=== PATIENT | female | born 1990 | race Caucasian/White ===

== ENCOUNTER 2019-08-04 08:50 | Inpatient (IN) | payer MEDICAID ==
[~2019-08-04] VITALS: Ht 157.5 cm; Wt 97.5 kg
[2019-08-04] MEDS ORDERED: LIDOCAINE HCL 2%/EPINEPHRINE 1:100,000 20 ML VIAL INFIL ONE (09:44)
[2019-08-04 10:30] LABS: CLARITY URINE CLEAR (CLEAR); COLOR URINE YELLOW (YELLOW); KETONES URINE NEGATIVE (NEGATIVE); LEUKOCYTE ESTERASE URINE 2+ (NEGATIVE); NITRITE URINE NEGATIVE (NEGATIVE); OCCULT BLOOD URINE NEGATIVE (NEGATIVE); PH URINE 6.5 (4.5-8.0); PROTEIN URINE NEGATIVE (NEGATIVE); SPECIFIC GRAVITY URINE 1.016 (1.005-1.030); UROBILINOGEN URINE 0.2 E.U./dL (0.2-1.0)
[2019-08-04 10:33] LABS: BASOPHILS % 0.6 % (0.0-2.0); EOSINOPHILS % 0.2 % (0.0-5.0); LYMPHOCYTES % 23.7 % (20.0-50.0); MEAN CORPUSCULAR VOLUME 84.8 fL (81.0-99.0); MEAN PLATELET VOLUME 9.2 fl (7.4-10.4); MONOCYTES % 6.2 % (2.0-8.0); NEUTROPHILS % 69.3 % (40.0-76.0); PLATELET 260 x1000/uL (130-400); RED BLOOD CELL COUNT 4.13 mill/uL (4.2-5.4); RED CELL DISTRIBUTION WIDTH 13.6 % (11.6-14.6)
[2019-08-04 10:37] LABS: INR 0.9; PARTIAL THROMBOPLASTIN TIME 26.6 sec (23.4-31.0)
[2019-08-04] MEDS ORDERED: DEXT 5%/LR + PITOCIN 20UNITS/L 1,000 ML IV SCH (11:58)
[2019-08-04] MEDS ORDERED: METHYLERGONOVINE MALEATE 0.2 MG/ML IM PRN (12:00)
[2019-08-04] MEDS ORDERED: LIDOCAINE HCL 1% 20ML VIAL (Pyxis) INJ INFIL SCH (12:00)
[2019-08-04] MEDS ORDERED: NALOXONE HCL 0.4 MG/ML 1ML VIAL IM PRN (12:00)
[2019-08-04] MEDS ORDERED: CARBOPROST TROMETHAMINE 250 MCG/ML AMPUL IM PRN (12:00)
[2019-08-04] MEDS ORDERED: MISOPROSTOL 100MCG TABLET VG SCH (12:00)
[2019-08-04] MEDS: LACTATED RINGERS 1,000 ML IV SCH ×3 (12:39→20:00)
[2019-08-04] MEDS: BUTORPHANOL TARTRATE 2 MG/ML VIAL IV PRN ×2 (14:27→17:43)
[2019-08-04] MEDS ORDERED: ROPIVACAINE HCL/PF EPIDURAL 200 ML EPI SCH (19:00)
[2019-08-05] MEDS: KETOROLAC 30MG/ML VIAL IV SCH ×2 (01:30→19:48)
[2019-08-05] MEDS ORDERED: FENTANYL CITRATE/PF 50MCG/ML 2ML VIAL ONE ×4 (02:13→10:37)
[2019-08-05] MEDS ORDERED: SODIUM CHLORIDE 0.9% 1,000 ML IR ONE (05:45)
[2019-08-05] MEDS: LACTATED RINGERS 1,000 ML IV SCH ×2 (05:47→09:52)
[2019-08-05] MEDS ORDERED: ROPIVACAINE HCL/PF EPIDURAL 200 ML EPI ONE (08:17)
[2019-08-05] MEDS: BUTORPHANOL TARTRATE 2 MG/ML VIAL IV PRN (08:36)
[2019-08-05] MEDS ORDERED: MORPHINE SULFATE/PF 1MG/ML 10ML AMP ONE (10:44)
[2019-08-05] MEDS ORDERED: OXYTOCIN 10 UNITS/ML 1ML ONE (10:47)
[2019-08-05] MEDS ORDERED: ONDANSETRON HCL 4MG/2ML INJ ONE (10:47)
[2019-08-05] MEDS ORDERED: CEFAZOLIN SODIUM 1000MG/VIAL ONE (10:47)
[2019-08-05] MEDS ORDERED: GLYCOPYRROLATE 0.2 MG/ML 2ML VIAL ONE (10:48)
[2019-08-05] MEDS ORDERED: CITRIC ACID/SODIUM CITRATE SOLN 30ML UDC PO NR (11:00)
[2019-08-05] MEDS ORDERED: KETOROLAC 60MG/2ML VIAL IM ONE (11:56)
[2019-08-05] MEDS ORDERED: DIPHENHYDRAMINE 50MG/ML VIAL ONE (11:56)
[2019-08-05] MEDS ORDERED: MIDAZOLAM HCL 2 MG/2 ML VIAL ONE (12:09)
[2019-08-05] MEDS ORDERED: BISACODYL 10MG SUPP PR PRN (13:00)
[2019-08-05] MEDS ORDERED: HEMORRHOIDAL SUPP PR PRN (13:00)
[2019-08-05] MEDS ORDERED: IBUPROFEN 400MG TABLET PO PRN (13:00)
[2019-08-05] MEDS ORDERED: LANOLIN OINT 7GM TUBE TOP PRN (13:00)
[2019-08-05] MEDS ORDERED: ONDANSETRON HCL 4MG/2ML INJ IV PRN (13:00)
[2019-08-05] MEDS: MAGNESIUM/ALUMINUM HYDROXIDE/SIMETHICONE 30ML UDC PO SCH ×2 (13:00→21:02)
[2019-08-05] MEDS ORDERED: DIPHENHYDRAMINE 25MG CAPSULE PO PRN (13:00)
[2019-08-05] MEDS ORDERED: ACETAMINOPHEN WITH CODEINE 300/30MG TABLET PO PRN (13:00)
[2019-08-05] MEDS: SIMETHICONE 80MG TABLET CHEW PO SCH (13:00)
[2019-08-05] MEDS ORDERED: HYDROCODONE/ACETAMINOPHEN 5/325MG TABLET PO PRN (13:00)
[2019-08-05] MEDS ORDERED: NALOXONE HCL 0.4 MG/ML 1ML VIAL IV PRN (13:15)
[2019-08-05] MEDS ORDERED: BUTORPHANOL TARTRATE 2 MG/ML VIAL IV PRN (13:15)
[2019-08-05] MEDS ORDERED: DIPHENHYDRAMINE 50MG/ML VIAL IV PRN (13:15)
[2019-08-05] MEDS: DEXT 5%/LR + PITOCIN 20UNITS/L 1,000 ML IV SCH ×2 (13:40→21:59)
[2019-08-05 15:00] VITALS: BP 106/69
[2019-08-05 15:30] VITALS: BP 118/63
[2019-08-05 16:30] VITALS: BP 120/60
[2019-08-05 19:30] VITALS: BP 103/59
[2019-08-05] MEDS ORDERED: DOCUSATE SODIUM 100MG CAPSULE PO SCH (21:00)
[2019-08-06] VITALS: BP 97/54
[2019-08-06 01:11] LABS: *AMPHETAMINES SCREEN URINE NEGATIVE (NEGATIVE); *BARBITURATES SCREEN URINE NEGATIVE (NEGATIVE); *COCAINE SCREEN URINE NEGATIVE (NEGATIVE)
[2019-08-06 01:12] LABS: CANNABINOID URINE SCREEN NEGATIVE (NEGATIVE); METHADONE URINE SCREEN NEGATIVE (NEGATIVE); PHENCYCLIDINE URINE SCREEN NEGATIVE (NEGATIVE)
[2019-08-06 01:20] LABS: *BENZODIAZEPINES SCREEN URINE PRESUMTIVE POSITIVE (NEGATIVE); OPIATES URINE SCREEN PRESUMTIVE POSITIVE (NEGATIVE)
[2019-08-06 04:00] VITALS: BP 98/56
[2019-08-06] MEDS ORDERED: KETOROLAC 30MG/ML VIAL IV SCH (04:30)
[2019-08-06] MEDS: KETOROLAC 30MG/ML VIAL IV SCH (04:33)
[2019-08-06] MEDS ORDERED: FERROUS SULFATE 325MG TABLET PO SCH (07:30)
[2019-08-06 07:38] LABS: BASOPHILS % 0.3 % (0.0-2.0); EOSINOPHILS % 0.1 % (0.0-5.0); HEMATOCRIT. 32.1 % (36.0-48.0); HEMOGLOBIN. 10.8 g/dL (12.0-16.0); MEAN CORPUSCULAR HEMOGLOBIN 28.9 pg (28.0-32.0); MONOCYTES % 9.3 % (2.0-8.0); NEUTROPHILS % 74.3 % (40.0-76.0); PLATELET 217 x1000/uL (130-400); RED BLOOD CELL COUNT 3.73 mill/uL (4.2-5.4); RED CELL DISTRIBUTION WIDTH 13.8 % (11.6-14.6)
[2019-08-06] MEDS: IBUPROFEN 800MG TABLET PO PRN (14:40)
[2019-08-06 20:20] VITALS: BP 98/63
[2019-08-06] MEDS: SIMETHICONE 80MG TABLET CHEW PO SCH (20:59)
[2019-08-07] MEDS: IBUPROFEN 800MG TABLET PO PRN (00:46)
[2019-08-07 00:50] VITALS: BP 127/70
[2019-08-07] MEDS ORDERED: IBUP-2030 MT (02:53)
[2019-08-07 04:35] VITALS: BP 95/54
[2019-08-07 08:00] VITALS: BP 116/73
[2019-08-07] MEDS ORDERED: TETANUS, DIPHTHERIA, PERTUSSIS VAC/PF 0.5ML (>7YR OLD) IM ONE (09:00)
[2019-08-10 13:06] LABS: BENZODIAZEPINES CONF GC/MS Negative (Cutoff=200); OPIATES CONFIRMATION URINE Positive (.)
== END 2019-08-07 11:25 | disposition home or self-care (01) | DRG 540 ==
LOC: OBSVTOIN 08:50 → 8 EST LDRP 08:50 → 8EST 08-05 14:44
PROVIDERS: ADMIT Obstetrics & Gynecology; ATTEND Obstetrics & Gynecology
PROC: 10D00Z1 Extraction of Products of Conception, Low, Open Approach (ICD-10-PCS; principal; 2019-08-05)
PROC: 0U7C7ZZ Dilation of Cervix, Via Natural or Artificial Opening (ICD-10-PCS; 2019-08-05)
DX: O36.63X0 Maternal care for excessive fetal growth, third trimester, not applicable or unspecified (principal); E66.01 Morbid (severe) obesity due to excess calories; O32.4XX0 Maternal care for high head at term, not applicable or unspecified; O69.81X0 Labor and delivery complicated by cord around neck, without compression, not applicable or unspecified; O99.214 Obesity complicating childbirth; Z3A.39 39 weeks gestation of pregnancy; Z37.0 Single live birth
CPT/HCPCS: 36415; 76805; 76818; 80305; 80346; 80361; 81003; 85025; 86592; 86850; 86900; 88307; 90715; G0378; J0595; J0690; J1200; J1885; J2250; J2274; J2405; J2590; J2795; J3010; J3490; J7120